=== PATIENT | male | born 1985 | race Caucasian/White ===

== ENCOUNTER 2019-03-01 13:50 | Outpatient (CLI) | payer OTHER | END 2019-03-01 13:51 | disposition home or self-care (01) | LOC: SC 13:50 | PROVIDERS: ATTEND Internal Medicine Pulmonary Disease | DX: R06.83 Snoring (principal); R06.81 Apnea, not elsewhere classified; R41.89 Other symptoms and signs involving cognitive functions and awareness; G47.10 Hypersomnia, unspecified; G47.8 Other sleep disorders | CPT/HCPCS: 99203; 99212 ==

== ENCOUNTER 2019-03-29 19:32 | Outpatient (CLI) | payer OTHER | END 2019-03-29 19:33 | disposition home or self-care (01) | LOC: SC 19:32 | PROVIDERS: ATTEND Internal Medicine Pulmonary Disease | DX: G47.61 Periodic limb movement disorder (principal) | CPT/HCPCS: 95810 ==

== ENCOUNTER 2019-06-07 13:16 | Outpatient (CLI) | payer OTHER ==
--- NOTE | 2019-06-07 14:08 | SLEEP CARE CONSULTATION ---
Information from patient questionnaire entered by Juanita Haro. I have reviewed and concur with the information entered by Juanita Haro. This document represents the service I personally performed and the decisions made by me, Chiid Manning MD, [facility] [place]. History of Present Illness Initial Bracey Sleepiness Scale score: 16 Current Bracey Sleepiness Scale score: 13 Additional HPI information: HPI: Mr. Nance returned for follow up of the sleep study he had on 03/29/2019. The polysomnography showed that The patient had normal sleep efficiency. The sleep architecture was normal as well. Respiratory monitoring showed no significant sleep disordered breathing (AHI = 2.8) associated with slight oxyhemoglobin desaturation, minimal hypoxia (tabitha oxygen saturation of 89%) and no sleep fragmentation. The few respiratory events occurred almost exclusively during supine sleep (supine AHI = 8.0; non-supine = 0.81). Snore was loud in intensity. There was mild periodic leg movement of sleep not associated with sleep fragmentation. Cardiac rhythm was normal sinus rhythm without significant arrhythmia. No abnormal behavior (parasomnia) observed during the night. The patient was informed of these findings. I explained to him that overall the sleep study was negative for significant sleep-disordered breathing but during the limited supine sleep, he did demonstrate obstructive sleep apnea-hypopnea. The patient said he sleeps mostly on his back at home but could not do so during the sleep study because of the wires. Allergies and Home Medications Home medication list reviewed: Yes Review of Systems Review of systems same as previous: Yes Impression and Plan 1. Obstructive Sleep Apnea-Hypopnea Syndrome, not demonstrated during his recent sleep study because he did not sleep supine as much as he normally does at home. Therefore, I suspect that the study was false negative. I recommend repeating the sleep study with the patient sleeping supine most of the night. He agrees. PLAN: 1. Repeat in-laboratory polysomnography with the patient sleeping supine as much as possible. 2. Return for follow up after the sleep study. This visit is time-based and I spent 15 minutes with the patient and more than 50% of the time was spent counseling the patient.
== END 2019-06-07 13:17 | disposition home or self-care (01) ==
LOC: SC 13:16
PROVIDERS: ATTEND Internal Medicine Pulmonary Disease
DX: R06.83 Snoring (principal)
CPT/HCPCS: 99212; 99213

== ENCOUNTER 2019-06-22 19:34 | Outpatient (CLI) | payer OTHER | END 2019-06-22 19:35 | disposition home or self-care (01) | LOC: SC 19:34 | PROVIDERS: ATTEND Internal Medicine Pulmonary Disease | DX: G47.33 Obstructive sleep apnea (adult) (pediatric) (principal); G47.61 Periodic limb movement disorder | CPT/HCPCS: 95810 ==

== ENCOUNTER 2019-07-19 10:13 | Outpatient (CLI) | payer OTHER ==
--- NOTE | 2019-07-19 13:04 | SLEEP CARE CONSULTATION ---
Information from patient questionnaire entered by Juanita Haro. I have reviewed and concur with the information entered by Juanita Haro. This document represents the service I personally performed and the decisions made by me, Chidi Manning MD, [facility]. History of Present Illness Initial Riverside Sleepiness Scale score: 16 Current Riverside Sleepiness Scale score: 9 Additional HPI information: HPI: Mr. Nance returned for follow up of the sleep study he had on 06/22/2019. The polysomnography showed that the sleep architecture was abnormal for sleep fragmentation and reduced amount of time spent in slow wave sleep (N3). Respiratory monitoring showed severe obstructive sleep apnea-hypopnea (AHI = 30.8) associated with frequent arousals, oxyhemoglobin desaturation and minimal hypoxia (tabitha oxygen saturation of 89%). The patient only slept supine during this study (supine AHI = 30.8; non-supine = 0.00). Snore was loud in intensity. There was mild periodic leg movement of sleep not contributing to the sleep fragmentation. Cardiac rhythm was normal sinus rhythm without significant arrhythmia. No abnormal behavior (parasomnia) observed during the night. The patient was informed of these findings. I explained to him the path ophysiology behind obstructive sleep apnea. We then spent quite a bit of time discussing different treatment options. For mild obstructive sleep apnea, surgery and oral appliance are alternatives to nasal CPAP therapy but in moderate or severe cases, nasal CPAP is the most effective and reliable treatment. Weight loss in an obese individual is strongly recommended. After some discussion, he opted to go with the nasal CPAP therapy. I explained to him how CPAP machine works and what to expect when using the machine. Physical Exam Weight (kg): 220 lb 6.4 oz Impression and Plan IMPRESSION: 1. Obstructive Sleep Apnea-Hypopnea Syndrome, severe, but positional. Obviously this is the cause of the patients symptoms of unrefreshed sleep, and excessive daytime sleepiness. As mentioned above, the patient will be return for a manual CPAP/BiPAP titration study. PLAN: 1. Schedule a manual CPAP/BiPAP titration study. 2. Avoid alcohol consumption near bedtime. 3. Avoid sleeping supine. 4. The patient is again cautioned about driving until his sleepiness completely resolves on the CPAP therapy. 5. Return in six weeks for follow up. I will assess his response and compliance at that time. I spent 100% of the 15 minute visit [id number] with the patient with greater than 50% of this was spent time counseling the patient and coordination of care.
== END 2019-07-19 10:14 | disposition home or self-care (01) ==
LOC: SC 10:13
PROVIDERS: ATTEND Internal Medicine Pulmonary Disease
DX: G47.33 Obstructive sleep apnea (adult) (pediatric) (principal)
CPT/HCPCS: 99212; 99213

== ENCOUNTER 2019-08-10 19:34 | Outpatient (CLI) | payer OTHER | END 2019-08-10 19:35 | disposition home or self-care (01) | LOC: SC 19:34 | PROVIDERS: ATTEND Internal Medicine Pulmonary Disease | DX: G47.33 Obstructive sleep apnea (adult) (pediatric) (principal); G47.61 Periodic limb movement disorder | CPT/HCPCS: 95811 ==

== ENCOUNTER 2019-09-20 13:27 | Outpatient (CLI) | payer OTHER ==
[2019-09-20 14:54] VITALS: BP 128/70
--- NOTE | 2019-09-20 14:54 | SLEEP CARE CONSULTATION ---
Information from patient questionnaire entered by Juanita Haro. I have reviewed and concur with the information entered by Juanita Haro. This document represents the service I personally performed and the decisions made by me, Kalpana Chong RN, MSN, [employer]. History of Present Illness Initial Harleton Sleepiness Scale score: 16 Current Harleton Sleepiness Scale score: 14 Additional HPI information: JENNA HERMOSILLO returns for follow up of the recently performed manual titration polysomnography. I explained the pathophysiology behind obstructive sleep apnea. I reviewed the impact of weight changes on sleep apnea and strongly recommended losing weight. After some discussion, the patient opted to go with the nasal CPAP therapy. Nasal autoCPAP set at 5 cmH20 will be ordered with rationale explained. I explained how CPAP machine works with sample devices Respironics Dreamstation and Earth Sky [id number] and what to expect when using the machine. Using CPAP every night in order to get used to it was emphasized. Patient advised to put CPAP mask on before getting into bed so as not to fall asleep without CPAP. To assist acclimation to CPAP use, it could also be used for a short time during day while reading or watching TV. The patient was instructed to call the CPAP supplier to discuss any mechanical problem that may occur. If the mask given is uncomfortable or is difficult to keep on through the night even with adjustment, contact the CPAP supplier as many will replace with another mask style if notified before 30 days. If snoring or perceives is not getting enough air or too much air from the machine, notify this office. [facility] patient education PAP tips reviewed and given to patient. Respironics preferred. Patient counseled not drink alcohol less than 4 hours before bedtime as it can increase snoring and apnea. Patient does not drink alcohol. Patient was cautioned about risks of drowsy driving until sleepiness symptoms resolve. [facility] patient education on snoring and sleep apnea given and reviewed. Sleep Study - Polysomnography Polysomnography findings: The quality of the study is good. CPAP was initiated at 4 cmH2O and titrated up to CPAP at 8 cmH2O. CPAP at 5 cmH2O appeared to be optimal (AHI of 0 per hour on the pressure). There was supine REM sleep on the pressure. Oxygen saturation was normal throughout the night Higher CPAP settings were associated with more frequent residual respiratory events. The patient appeared to have tolerated positive airway pressure therapy very well. The patients sleep efficiency was normal. The sleep architecture was normal as well. There was mild periodic leg movement of sleep not associated with sleep fragmentation. Cardiac rhythm was normal sinus rhythm without significant arrhythmia. No abnormal behavior (parasomnia) observed during the night. Allergies and Home Medications Known drug allergies: No Home medication list reviewed: Yes Allergy and home medication list: Advil or exedrin prn Review of Systems Review of systems same as previous: Yes Physical Exam Blood Pressure: 128/70 Cuff size: long Heart Rate: 70 O2 Saturation: 98 Height: 6 ft Weight: 218 lb Body Mass Index: 29.5 BMI Classification: Overweight Impression and Plan 1. Obstructive Sleep Apnea-Hypopnea Syndrome, severe, with lowest oxygen saturation of 89%. Obviously this is the cause of the patients symptoms of unrefreshed sleep, and excessive daytime sleepiness. As mentioned above, the patient will be started on nasal autoCPAP therapy with pressure set at 5 cmH2O. Compliance guidelines also reviewed. A copy of compliance guidelines will be given for reference at check out. * Nasal auto CPAP therapy, pressure at 5 cm H2O. * Respironics Dreamstation patient choice * Attempt to lose weight. * Avoid alcohol consumption near bedtime. * The patient is again cautioned about driving until sleepiness completely resolves. * Return one month after CPAP obtained. I will assess response to therapy and compliance at that time. I spent 100% of this 30 minute visit face to face with the patient with greater than 50% of this was spent time counseling the patient and coordination of care.
== END 2019-09-20 13:28 | disposition home or self-care (01) ==
LOC: SC 13:27
PROVIDERS: ATTEND Nurse Practitioner Family
DX: G47.33 Obstructive sleep apnea (adult) (pediatric) (principal)
CPT/HCPCS: 99212; 99214

== ENCOUNTER 2019-12-08 16:03 | Outpatient (CLI) | payer OTHER ==
[2019-12-08 17:12] VITALS: BP 118/68
--- NOTE | 2019-12-08 17:12 | SLEEP CARE CONSULTATION ---
Information from patient questionnaire entered by Princess Hedrick. I have reviewed and concur with the information entered by Princess Hedrick. This document represents the service I personally performed and the decisions made by me, Kalpana Chong, RN, MSN, [employer]. History of Present Illness Previous diagnosis: Severe, Obstructive Sleep Apnea-Hypopnea Syndrome AHI: 30.8 Reason for follow up: first compliance Equipment type: CPAP Equipment obtained from: [employer] Mask style: Nasal (Wisp nasal mask) Mask brand: Respironics Backup mask available: No (keep current mask as a spare ) Last cushion change: none since set up - just obtained supplies CPAP Compliance Data - Data Reviewed with Patient Average duration of nightly device use: 4.5 Compliance rate %: 40 Current pressure setting (cmH2O): 5 Humidity settin Heated hose settin Average residual AHI: 2.3 Average large leak: 6 sec Subjective Missed days of use due to: reports: illness, other (fall asleep before bed ) Patient concerns: reports: mask discomfort (rubs tip of nose when sleeping on his side ), air blowing in eyes (occasionally resolved with adjustment. ), nasal congestion (does not use humidity ), other (pulling off in sleep - still acclimating to using every night). denies: aerophagia, mask leak noise, condensation in mask/hose, dry mouth, nose, throat, epistaxis Observed to snore while using device: No Current pressure setting perceived as: too low (seems too low most of time recently past 10 days.) On therapy, patient: reports: sleeping better, awakening more refreshed, being more awake and alert during the day, more rested overall. denies: drowsiness while driving Initial Ruffin Sleepiness Scale score: 16 Current Ruffin Sleepiness Scale score: 5 Allergies and Home Medications Known drug allergies: No Home medication list reviewed: Yes Allergy and home medication list: ibuprofen 800mg Hs for body aches Review of Systems Review of systems same as previous: No (ill URI with cough ) Physical Exam Blood Pressure: 118/68 Cuff size: long Heart Rate: 68 O2 Saturation: 98 Height: 6 ft Weight: 218 lb 3.2 oz Body Mass Index: 29.5 BMI Classification: Overweight Impression and Plan 1. Obstructive Sleep Apnea-Hypopnea Syndrome, severe, with fair treatment compliance and good apnea control. On CPAP therapy, the patient has better sleep quality and is more rested overall. For air hunger, I will change autoCPAP to 6-8cmH20. It is unclear why his pressure was not adjusted last month as ordered when patient called. Thus I will have completed in office. To improve mask comfort, he was shown a CPAP pillow. In addition, the cushion may be wearing out and thus he is to change more often. But after some discussion, I fitted him with a different mask style, the Dreamwear nasal mask. He felt it was more comfortable than current mask. He is to contact [facility] if this is a better mask for the right nasal cushion replacements. If he does not open supplies just received, he may be able to switch. A prescription was made for [employer] of mask style and size. Nasal congestion could be why he is pulling off the mask or his air hunger. Nasal congestion can be reduced with increasing the CPAP humidity as shown on sample device. The heated hose can be adjusted higher if condensation with higher humidity setting. Saline nasal spray sample was also given to use prior to CPAP to clear nasal secretions and wash off any nasal allergens to facilitate nasal breathing. In addition, a steamy shower before bed will often assist nasal drainage. Printed instructions given on how to change humidity and heated hose settings with rationale explaining why to change. In addition, he can try Claritin nightly before bed. If no resolution, he can follow up with his PCP. 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 For deployment supplies and CPAP battery, a prescription is needed by his PCP. I also gave him a reference sheet for the battery. 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 Patient's apnea severity and rationale for treatment to reduce apnea, improve sleep quality and reduce cardiovascular and cerebrovascular events was reviewed. Compliance guidelines again reviewed. Patient is advised to use CPAP with all sleep to obtain maximum benefit of treatment. He was also cautioned about the risks of cardiac arrhythmia from energy drinks. * * Change CPAP pressure to 6-8 cmH2O * Try DReamwear nasal mask - medium * Implement methods to reduce nasal congestion. * Follow up with PCP for prescription for deployment supplies and battery. * Notify me if snoring with mask or feeling that the pressure is too much or too little * Attempt to lose weight * Caution about energy drinks * Call this office if any problems using CPAP * Return for follow up in 1 month , or sooner if concerns arise Time Spent with Patient (minutes): 45 I spent 100% of this visit face to face with the patient with greater than 50% of this was spent time counseling the patient and coordination of care.
== END 2019-12-08 16:04 | disposition home or self-care (01) ==
LOC: SC 16:03
PROVIDERS: ATTEND Nurse Practitioner Family
DX: G47.33 Obstructive sleep apnea (adult) (pediatric) (principal)
CPT/HCPCS: 99212; 99215

== ENCOUNTER 2020-10-12 11:19 | Outpatient (CLI) | payer OTHER ==
--- NOTE | 2020-10-12 12:01 | SLEEP CARE CONSULTATION ---
Information from patient questionnaire entered by Princess Hedrick. I have reviewed and concur with the information entered by Princess Hedrick. This document represents the service I personally performed and the decisions made by , Leigh Ann Sarmiento ARNP. 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 He was given a different mask that he like better and he has been using it for the last 8 months. He is averaging 3-4 hours of being in bed and mostly sleeping. He just got back 3-4 weeks ago. CPAP Compliance Data - Data Reviewed with Patient Average duration of nightly device use: 4 hr 6 min Compliance rate %: 30 Current pressure setting (cmH2O): 6-8 Humidity settin Heated hose settin Average residual AHI: 4.6 Central apnea: 0.4 Obstructive apnea: 0.5 Hypopnea: 3.7 Average large leak: 19 sec Subjective Missed days of use due to: reports: mask issues, travel, other (he will wake up without his mask on) Patient concerns: reports: nasal congestion (feels more like his sinuses are narrow or swollen), other (headache, occasionally). denies: aerophagia, mask discomfort, air blowing in eyes, mask leak noise, condensation in mask/hose, dry mouth, nose, throat, epistaxis Observed to snore while using device: No Current pressure setting perceived as: comfortable On therapy, patient: reports: sleeping better, awakening more refreshed, being more awake and alert during the day, more rested overall. denies: drowsiness while driving Initial Sherrill Sleepiness Scale score: 16 (in 2019) Current Sherrill Sleepiness Scale score: 13 Allergies and Home Medications Drug allergies reviewed: Yes (NKDA) Home medication list reviewed: Yes (no changes) Review of Systems Review of systems same as previous: Yes (no changes) Physical Exam Heart Rate: 98 O2 Saturation: 72 Height: 6 ft Weight: 224 lb Body Mass Index: 30.4 BMI Classification: Obese Impression and Plan 1. Obstructive Sleep Apnea-Hypopnea Syndrome, severe, with poor treatment compliance and fair apnea control. On CPAP therapy, the patient has better sleep quality and is more rested overall. He is unable to get more than 3-4 hours of sleep due to his position in the [email or web address] where he is showing how he performs under certain sleep deprived conditions. He should be done with this at the end of October. I will have him follow up in early December so we may re-evaluate his compliance when he is able to sleep a more normal schedule. He wants to continue using a mask like the one he was given by a friend. I will have him call [facility] to get supplies and he was encouraged to talk to them about the mask he wants which is similar to a Dreamwear under the nose cushion mask. Patient's apnea severity and rationale for treatment to reduce apnea, improve sleep quality and reduce cardiovascular and cerebrovascular events was reviewed. * Continue auto CPAP pressure at 6-8 cmH2O * Order nasal cushion masks * Notify me if snoring with mask or feeling that the pressure is too much or too little * Call this office if any problems using CPAP * Return for follow up in 1-2 months, or sooner if concerns arise Counseling Topics: Spare mask Visit Type: In Office Time Spent with Patient (minutes): 25 Provider Statement: I spent 100% of the Face to Face Visit with the patient with greater than 50% spent counseling the patient and coordination of care.
== END 2020-10-12 11:20 | disposition home or self-care (01) ==
LOC: SC 11:19
PROVIDERS: ATTEND Nurse Practitioner Family
DX: G47.33 Obstructive sleep apnea (adult) (pediatric) (principal); E66.9 Obesity, unspecified; Z68.30 Body mass index [BMI] 30.0-30.9, adult
CPT/HCPCS: 99212; 99213

== ENCOUNTER 2021-01-10 12:35 | Outpatient (CLI) | payer OTHER ==
--- NOTE | 2021-01-10 13:20 | SLEEP CARE CONSULTATION ---
Information from patient questionnaire entered by Princess Hedrick. I have reviewed and concur with the information entered by Princess Hedrick. This document represents the service I personally performed and the decisions made by , Leigh Ann Sarmiento ARNP. History of Present Illness Service Date and Time: 01/10/2021 1235 Previous diagnosis: Severe, Obstructive Sleep Apnea-Hypopnea Syndrome AHI: 30.8 (in 2019) Reason for follow up: three month Equipment type: CPAP Equipment obtained from: [employer] (got initial supplies only, needs to follow up with DME to get supplies) Mask style: Nasal (under the nose) Backup mask available: No (will keep mask when replaced) Last cushion change: 9 months Prior sleep studies: Yes Year and Where: 2019 - [facility] Type of Sleep Study: Polysomnography HPI additional information: JENNA HERMOSILLO was diagnosed to have severe, AHI 30.8, obstructive sleep apnea- hypopnea syndrome and returned today for CPAP therapy three month follow-up. CPAP Compliance Data - Data Reviewed with Patient Average duration of nightly device use: 4 hr 42 min Compliance rate %: 43.3 (last 30) Current pressure setting (cmH2O): 6-8 Humidity settin Heated hose settin Average residual AHI: 4.3 Average large leak: 5 sec Subjective Missed days of use due to: reports: mask issues, travel (deployment), other ([employer] season) Patient concerns: reports: mask leak noise, other (headache). denies: aerophagia, mask discomfort, air blowing in eyes, condensation in mask/hose, nasal congestion, dry mouth, nose, throat, epistaxis Current pressure setting perceived as: too high (?) On therapy, patient: reports: sleeping better, awakening more refreshed, being more awake and alert during the day, more rested overall. denies: drowsiness while driving Initial Stewart Sleepiness Scale score: 16 (ini 2019) Current Stewart Sleepiness Scale score: 11 Allergies and Home Medications Home medication list reviewed: Yes (no changes) Review of Systems Review of systems same as previous: Yes (no changes) Physical Exam Heart Rate: 70 O2 Saturation: 98 Height: 6 ft Weight: 225 lb Body Mass Index: 30.5 BMI Classification: Obese Impression and Plan 1. Obstructive Sleep Apnea-Hypopnea Syndrome, severe, with fair treatment compliance and fair apnea control. On CPAP therapy, the patient has better sleep quality and is more rested overall. He feels the pressure may be too high, he uses the ramp feature when unable to tolerate the pressure and is able to go back to sleep. He has apnea control with a residual AHI of 4.3. I discussed with patient that reducing this pressure may increase his residual and he would like to keep it at current setting. He has had some headaches but states he is prone to sinus infections and is not sure it is due to the CPAP machine. He was advised to try to increase time with CPAP on to increase his compliance. He has improved from previous visit and we discussed using at least 4 hours, 70% of days. He is currently at 43% in last 30 days. He voiced understanding and agreement to plan. Patient's apnea severity and rationale for treatment to reduce apnea, improve sleep quality and reduce cardiovascular and cerebrovascular events was reviewed. * Continue auto CPAP pressure at 6-8 cmH2O * Notify me if snoring with mask or feeling that the pressure is too much or too little * Attempt to lose weight * Call this office if any problems using CPAP * Return for follow up in 1-2 months, or sooner if concerns arise Counseling Topics: Spare mask, Weight loss health impact Visit Type: In Office Time Spent with Patient (minutes): 19 Provider Statement: I spent 100% of the Face to Face Visit with the patient with greater than 50% spent counseling the patient and coordination of care.
== END 2021-01-10 12:36 | disposition home or self-care (01) ==
LOC: SC 12:35
PROVIDERS: ATTEND Nurse Practitioner Family
DX: G47.33 Obstructive sleep apnea (adult) (pediatric) (principal); E66.9 Obesity, unspecified; Z68.30 Body mass index [BMI] 30.0-30.9, adult
CPT/HCPCS: 99212

== ENCOUNTER 2021-03-15 12:39 | Outpatient (CLI) | payer OTHER ==
--- NOTE | 2021-03-15 13:20 | SLEEP CARE CONSULTATION ---
Information from patient questionnaire entered by Princess Hedrick. I have reviewed and concur with the information entered by Princess Hedrick. This document represents the service I personally performed and the decisions made by , Leigh Ann Sarmiento ARNP. History of Present Illness Service Date and Time: 03/15/2021 1239 Previous diagnosis: Severe, Obstructive Sleep Apnea-Hypopnea Syndrome (qdf) AHI: 30.8 (in 2019) Reason for follow up: other (2 month) Equipment type: CPAP Equipment obtained from: [employer] (he has not gotten supplies since Oct 2019; talked to [employer] on phone today and supplies ordered) Mask style: Nasal Mask brand: Respironics (Dreamwear) Backup mask available: Yes Prior sleep studies: Yes Year and Where: 2018 - [facility] Type of Sleep Study: Polysomnography HPI additional information: JENNA HERMOSILLO was diagnosed to have severe, AHI 30.8, obstructive sleep apnea- hypopnea syndrome and returned today for CPAP therapy 2 month compliance follow- up. CPAP Compliance Data - Data Reviewed with Patient Average duration of nightly device use: 5 hr 38 min Compliance rate %: 53.3 (60 days) Current pressure setting (cmH2O): 6-8 Humidity settin Heated hose settin Average residual AHI: 3.0 Average large leak: 4 sec Subjective Missed days of use due to: reports: mask issues, travel, other (takes mask off during the night without knowing, trying to put back on when found off when awakens at night) Patient concerns: reports: air blowing in eyes, mask leak noise, dry mouth, nose, throat, other (headache). denies: aerophagia, mask discomfort, condensation in mask/hose, nasal congestion, epistaxis Observed to snore while using device: No Current pressure setting perceived as: comfortable On therapy, patient: reports: sleeping better, awakening more refreshed, being more awake and alert during the day, more rested overall. denies: drowsiness while driving Initial [place] Sleepiness Scale score: 16 (in 2019) Current [place] Sleepiness Scale score: 6 Allergies and Home Medications Home medication list reviewed: Yes (no changes) Review of Systems Review of systems same as previous: Yes (no changes) Physical Exam Heart Rate: 77 O2 Saturation: 95 Height: 6 ft Weight: 227 lb Body Mass Index: 30.7 BMI Classification: Obese Impression and Plan 1. Obstructive Sleep Apnea-Hypopnea Syndrome, severe, with fair treatment compliance and good apnea control. On CPAP therapy, the patient has better sleep quality and is more rested overall. He has finally gotten [facility] of [facility] and they are supposedly sending him replacement supplies. This should help reduce air leaking in his eyes and leak noises that are due to worn out mask and headgear. He has increased his compliance by about 10 % and is now at 53.3%. He states main problem is him taking the mask off while asleep and then not being able to wake up enough to remember to put it back on, even when his has been elbowing him about it. He states he will ask his to make sure he awakens enough to put mask on and he will try not to get grumpy at her about it. He wants to continue using the CPAP because he has seen some benefits. He thinks his work schedule is contributing to his daily fatigue. I will have him follow up to recheck compliance. To prevent falling asleep without CPAP after using the bathroom, patient can either unhook the hose and keep mask on or put mask on pillow. Patient's apnea severity and rationale for treatment to reduce apnea, improve sleep quality and reduce cardiovascular and cerebrovascular events was reviewed. * Continue auto CPAP pressure at 6-8 cmH2O * Notify me if snoring with mask or feeling that the pressure is too much or too little * Attempt to lose weight * Call this office if any problems using CPAP * Return for follow up in 1-2 months to recheck compliance, or sooner if concerns arise Counseling Topics: Spare mask, Weight loss health impact Visit Type: In Office Time Spent with Patient (minutes): 22 Provider Statement: I spent 100% of the Face to Face Visit with the patient with greater than 50% spent counseling the patient and coordination of care.
== END 2021-03-15 12:40 | disposition home or self-care (01) ==
LOC: SC 12:39
PROVIDERS: ATTEND Nurse Practitioner Family
DX: G47.33 Obstructive sleep apnea (adult) (pediatric) (principal); E66.9 Obesity, unspecified; Z68.30 Body mass index [BMI] 30.0-30.9, adult
CPT/HCPCS: 99212; 99213

== ENCOUNTER 2021-06-13 13:22 | Outpatient (CLI) | payer OTHER ==
--- NOTE | 2021-06-13 14:03 | SLEEP CARE CONSULTATION ---
Information from patient questionnaire entered by Princess Hedrick. I have reviewed and concur with the information entered by Princess Hedrick. This document represents the service I personally performed and the decisions made by , Leigh Ann Sarmiento ARNP. History of Present Illness Service Date and Time: 06/13/2021 1322 Previous diagnosis: Severe, Obstructive Sleep Apnea-Hypopnea Syndrome AHI: 30.8 (in 2019) Reason for follow up: other (6 week) Equipment type: CPAP Equipment obtained from: [employer] (getting supplies as needed) Mask style: Nasal Mask brand: Respironics (Dreamwear) Backup mask available: Yes (old mask) Last cushion change: 6 weeks Prior sleep studies: Yes Year and Where: 2019 - [facility] Type of Sleep Study: Polysomnography HPI additional information: JENNA HERMOSILLO was diagnosed to have severe, AHI 30.8, obstructive sleep apnea- hypopnea syndrome and returned today for CPAP therapy 6 week follow-up. CPAP Compliance Data - Data Reviewed with Patient Average duration of nightly device use: 5 hr 34 min Compliance rate %: 70 (30 days) Current pressure setting (cmH2O): 6-8 Humidity settin Heated hose settin Average residual AHI: 4.1 Average large leak: 7 sec Subjective Missed days of use due to: reports: travel Patient concerns: reports: mask leak noise, dry mouth, nose, throat (forgets to put water in the chamber), other (headache). denies: aerophagia, mask discomfort, air blowing in eyes, condensation in mask/hose, nasal congestion, epistaxis Current pressure setting perceived as: too low On therapy, patient: reports: sleeping better, awakening more refreshed, being more awake and alert during the day, more rested overall. denies: drowsiness while driving Initial [place] Sleepiness Scale score: 16 (in 2019) Current [place] Sleepiness Scale score: 8 Allergies and Home Medications Home medication list reviewed: Yes (no changes) Review of Systems Review of systems same as previous: Yes (no changes) Physical Exam Heart Rate: 66 O2 Saturation: 97 Height: 6 ft Weight: 230 lb Body Mass Index: 31.1 BMI Classification: Obese Impression and Plan 1. Obstructive Sleep Apnea-Hypopnea Syndrome, severe, with good treatment compliance and good apnea control. On CPAP therapy, the patient has better sleep quality and is more rested overall. He has reached compliance in the last 30 days to 70%. Compliance guidelines reviewed for insurance coverage. Patient was counseled on the difference between meeting compliance and optimal use of CPAP. Optimal use of CPAP is use of CPAP with all sleep to obtain maximum benefit of treatment. Patient is encouraged to use CPAP with all sleep. Patient's apnea severity and rationale for treatment to reduce apnea, improve sleep quality and reduce cardiovascular and cerebrovascular events was reviewed. * Continue auto CPAP pressure at 6-8 cmH2O * Notify me if snoring with mask or feeling that the pressure is too much or too little * Attempt to lose weight * Call this office if any problems using CPAP * Return for follow up in 1-2 months, or sooner if concerns arise Counseling Topics: Spare mask, Weight loss health impact Follow up with Sleep Care in: 1 year Visit Type: In Office Time Spent with Patient (minutes): 21 Provider Statement: I spent 100% of the Face to Face Visit with the patient with greater than 50% spent counseling the patient and coordination of care.
== END 2021-06-13 13:23 | disposition home or self-care (01) ==
LOC: SC 13:22
PROVIDERS: ATTEND Nurse Practitioner Family
DX: G47.33 Obstructive sleep apnea (adult) (pediatric) (principal); E66.9 Obesity, unspecified; Z68.31 Body mass index [BMI] 31.0-31.9, adult
CPT/HCPCS: 99212; 99213

== ENCOUNTER 2022-02-07 09:47 | Outpatient (CLI) | payer OTHER ==
--- NOTE | 2022-02-07 16:37 | MRI Report ---
PROCEDURE: Hip LT W/O INDICATIONS: INJURY TO LEFT THIGH TECHNIQUE: Noncontrast coronal T1 spin echo and STIR through the bony pelvis. Coronal and axial T2 fast spin ec ho with fat saturation, sagittal T1 spin echo, and oblique axial T2 fast spin echo with fat saturatio n through the hip. COMPARISON: None. Findings: MUSCULATURE: Minimal T2 hyperintense signal within the gluteus medius musculotendinous junction, whic h may reflect injury/small tear. LABRUM: Maintained without evidence of tear or paralabral cyst. HAMSTRING ATTACHMENT: No significant abnormality. BONES/JOINTS: No fractures or dislocations are identified. No evidence of irregularity or fragmentat ion of the femoral heads to suggest avascular necrosis. The bone marrow signal intensity is normal for the patient's age. The ligamentum teres appears intact. The hyaline cartilage appears maintained. Normal alpha angle, measuring less than 55 degrees. No substantial joint effusion. PELVIC STRUCTURES: The lower pelvic intraperitoneal structures are unremarkable. Impression: 1.Minimal edema within the gluteus medius musculotendinous junction, which may reflect injury/small t ear. Reviewed by: Dajuan Byrne MD on 02/07/2022 4:35 PM PDT Approved by: Dajuan Byrne MD on 02/07/2022 4:35 PM PDT Station ID: [id number]
--- NOTE | 2022-02-07 16:44 | MRI Report ---
PROCEDURE: Femur/Thigh LT W/O INDICATIONS: INJURY TO LEFT THIGH TECHNIQUE: Noncontrast coronal and sagittal T1 spin echo and STIR; axial T1 spin echo and T2 fast spin echo with fat saturation through the left thigh. COMPARISON: None. FINDINGS: Image quality: Excellent. Bones: The visualized bone marrow demonstrates normal signal on all sequences. The overlying cortex appears intact. No fractures lines or intra-osseous lesions. Soft tissues: T2 hyperintense signal within the musculotendinous junction of the biceps femoris long head, compatible tear. The remaining scanned muscles demonstrate normal overall bulk and internal sig nal. Subcutaneous tissues appear normal as well. No soft tissue masses are present. IMPRESSION: 1. Partial tear of the biceps femoris long head. Reviewed by: Dajuan Byrne MD on 02/07/2022 4:42 PM PDT Approved by: Dajuan Byrne MD on 02/07/2022 4:42 PM PDT Station ID: [id number]
== END 2022-02-07 09:48 | disposition home or self-care (01) ==
LOC: DI 09:47
PROVIDERS: ATTEND Family Medicine
DX: S76.822A Laceration of other specified muscles, fascia and tendons at thigh level, left thigh, initial encounter (principal)

== ENCOUNTER 2023-04-15 09:34 | Outpatient (CLI) | payer OTHER ==
--- NOTE | 2023-04-16 11:07 | MRI Report ---
PROCEDURE: KNEE WO - LT INDICATIONS: LEFT KNEE PAIN TECHNIQUE: Noncontrast sagittal PD fast spin echo and T2 fast spin echo with fat saturation, sagittal 3-D gradie nt sequence with fat saturation; coronal T1 spin echo and PD fast spin echo with fat saturation, and axial PD fast spin echo with fat saturation through the knee. COMPARISON: None. FINDINGS: Image quality: Excellent. Menisci: The medial and lateral menisci demonstrate normal morphology and internal signal. The meni scal root ligaments appear intact. Cruciate ligaments: The anterior and posterior cruciate ligaments appear intact. There is mucoid de generation of ACL. Medial structures: The medial collateral ligament appears intact. The semimembranosus tendon insert ions and meniscocapsular junction appear intact. Visualized portions of the pes anserinus tendons ap pear normal. No abnormal bursal fluid. Lateral structures: The lateral collateral ligament and the biceps femoris tendon appear intact. Th e popliteus tendon appears normal. Iliotibial band appears normal. Anterior structures: The quadriceps and patellar tendons appear intact. There is low-grade patellar tendinitis and quadriceps tendinitis. Patellar alignment is normal. No femoral trochlear dysplasia o r ventral trochlear prominence. Mild edema in the infrapatellar fat pad, suggesting infrapatellar fat -pad impingement. Bones and cartilage: No bone marrow contusions or fractures. Mild cartilage fibrillation in the medi al femorotibial compartment with preserved cartilage thickness. Joint space: There is normal knee joint effusion. No Olson's cyst. Normal appearing synovial plica e are incidentally noted. IMPRESSION: 1. Mucoid degeneration of ACL. 2. Mild edema in the infrapatellar fat pad suggesting infrapatellar fat-pad impingement. 3. Low-grade patellar tendinitis and quadriceps tendinitis. 4. Small knee joint effusion. Reviewed by: Ginette Holland MD on 04/16/2023 11:05 AM PDT Approved by: Ginette Holland MD on 04/16/2023 11:05 AM PDT Station ID: [id number]
== END 2023-04-15 09:35 | disposition home or self-care (01) ==
LOC: DI 09:34
PROVIDERS: ATTEND Student in an Organized Health Care Education/Training Program
DX: M23.612 Other spontaneous disruption of anterior cruciate ligament of left knee (principal); R60.0 Localized edema; M76.9 Unspecified enthesopathy, lower limb, excluding foot; M25.462 Effusion, left knee